=== PATIENT | female | born 1985 | race Caucasian/White ===

== ENCOUNTER 2017-11-09 18:47 | Emergency (ER) | payer OTHER ==
[2017-11-09 19:10] VITALS: BP 125/73
--- NOTE | 2017-11-09 19:23 | UC ---
[facility] HPI - HPI Summary HPI Summary: onset of dental pain yesterday, in a tooth with a known fracture, destined to be removed in 3 weeks. + swelling, no fever, no eye pain. - History of Current Complaint Chief Complaint: UCDentalProblem Stated Complaint: DENTAL COMPLAINT Time Seen by Provider: 11/09/17 19:15 Hx Obtained From: Patient Hx Last Menstrual Period: 10/12/17 ?: No Onset/Duration: Sudden Onset, Lasting Days Severity: Moderate Pain Intensity: 8 Aggravating Factor(s): Heat, Cold, Chewing Alleviating Factor(s): OTC Meds Related History: Previous Dental Care on Same Tooth - Allergies/Home Medications Allergies/Adverse Reactions: Allergies Allergy/AdvReac Type Severity Reaction Status Date / Time No Known Allergies Allergy Verified 11/09/17 19:04 Home Medications: Home Medications Ibuprofen TAB* [Advil TAB*] 600 mg PO Q6H PRN 11/09/17 [History Confirmed ] PMH/Surg Hx/FS Hx/Imm Hx Previously Healthy: Yes - Surgical History Surgical History: Yes Surgery Procedure, Year, and Place: endoscopy - Family History Known Family History: Positive: Diabetes - Social History Occupation: Employed Full-time - SAHM Lives: With Family Alcohol Use: None Substance Use Type: None Smoking Status (MU): Never Smoked Tobacco Review of Systems Constitutional: Negative Skin: Negative Eyes: Negative ENT: Negative Respiratory: Negative Cardiovascular: Negative Gastrointestinal: Negative Genitourinary: Negative - menses due next week, not using protection, but no symptoms of Motor: Negative Neurovascular: Negative Musculoskeletal: Negative Neurological: Negative Psychological: Negative Is Patient Immunocompromised?: No All Other Systems Reviewed And Are Negative: Yes Physical Exam Triage Information Reviewed: Yes Appearance: Well-Appearing, Pain Distress - mild Vital Signs: Initial Vital Signs Temp 97.9 F 11/09/17 19:05 Pulse 102 11/09/17 19:05 Resp 18 11/09/17 19:05 BP 125/73 11/09/17 19:05 Pulse Ox 100 11/09/17 19:05 Eye Exam: Other - normal eom Eyes: Positive: Conjunctiva Clear ENT Exam: Other - + diffuse swelling right cheek in pre-auricular area. ENT: Positive: Pharynx normal Dental: Positive: Percussion Tenderness @ - 1 and 2 Neck: Positive: Supple, Nontender, No Lymphadenopathy Respiratory: Positive: Lungs clear, Normal breath sounds Dental Complaint Course/Dx - Course Course Of Treatment: penicillin treatment. - Differential Dx/Diagnosis Differential Diagnosis/Dx: Dental Abscess, Dental Caries, Fractured Tooth Provider Diagnoses: dental abscess Discharge - Sign-Out/Discharge Documenting (check all that apply): Patient Departure All imaging exams completed and their final reports reviewed: No Studies - Discharge Plan Condition: Stable Disposition: HOME Prescriptions: Penicillin VK 500 MG TAB(NF) [Penicillin VK 500 mg Tab] 500 mg PO QID #28 tab Patient Education Materials: Dental Abscess (ED) Print Language: SYRI[place] Referrals: Meghan Dale NP [Primary Care Provider] - Additional Instructions: Take full course of antibiotics, use ibuprofen 600mg up to 4 times daily for control of pain, and follow up with your dentist as arranged. - Billing Disposition and Condition Condition: STABLE Disposition: Home Images Dental: 1 - percussion tenderness.
== END 2017-11-09 19:35 | disposition home or self-care (01) ==
LOC: UCCORT 18:47
DX: K04.7 Periapical abscess without sinus (principal)
CPT/HCPCS: 99212; G0463